=== PATIENT | female | born 1985 | race Asian ===

== ENCOUNTER → 2024-07-24 09:48 | Outpatient (REF) | payer OTHER, SELFPAY | LOC: RAD 09:48 | PROVIDERS: ATTENDING PHYSICIAN Internal Medicine | DX: N30.01 Acute cystitis with hematuria (principal) | CPT/HCPCS: 76770 ==

== ENCOUNTER 2024-12-15 18:48 | Inpatient (IN) | payer OTHER, SELFPAY ==
[2024-12-15 15:00] VITALS: BP 125/82
[2024-12-15] MEDS: MAGNESIUM SULFATE 50 IV (15:24)
[2024-12-15] MEDS: DUONEB 9 ML INH (15:24)
--- NOTE | 2024-12-15 15:31 | ED.GENMED ---
History of Present Illness
General
Chief Complaint: Breathing Problem
Time Seen by Provider: 12/15/24 15:11
History of Present Illness
History of Present Illness:
39-year-old female with history of asthma presenting for persistent asthma exacerbation. Patient reports she has been having asthma symptoms off and on for the past month after traveling out of the country. Notes that she previously had been
getting injections for her asthma every month, however stopped when she went out of the country. As soon as she got back home a month ago, her shortness of breath began. She is been using her inhaler without significant relief. She went to her
doctor prior to arrival, was given an albuterol treatment and 40 mg of prednisone. She denies any history of intubations or admissions. She denies fever. She has been having a cough. She denies additional acute medical complaints
Phy Exam
Physical Exam
Physical Exam:
General: Well-appearing, no clinical signs of dehydration, nontoxic and in no acute distress
HEENT: protecting airway
Neck: appears supple
CV: Tachycardic, regular rhythm, no evidence of cyanosis
Resp: Increased work of breathing with accessory muscle use, diminished air movement bilaterally with expiratory wheezing
Abd: No distention
Extremities: No deformities, no swelling
Neuro: alert, no focal neurologic deficit
: deferred
Rectal: deferred
Psych: Normal affect
Skin: Intact
Course
Orders/Labs/Results
Orders:
Orders
12/15/24
Electrocardiogram (*1) Stat
Comment: DONE EMR
12/15/24 15:14
Ipratropium/Albuterol Sulfate [Duoneb] 9 ml INH R NOW STA
Magnesium Sulfate 2 Gram/50 ml [Magnesium Sulfate] 2 gram in 50 ml IV NOW
CR Chest - 2 Views Urgent
Comment:
Reason For Exam: asthma exacerbation
12/15/24 15:15
Test Result ONCE
12/15/24 15:21
Complete Blood Count/With Diff Urgent
D-Dimer Urgent
12/15/24 15:37
Dexamethasone Sod Phosphate [Decadron] 10 mg IV NOW STA
12/15/24 15:58
COVID-19 Antigen Urgent
Source: Nasal Swab
Influenza A+B Rapid Molecular Urgent
JEANETTE Source: Nasal Swab
Specimen Description:
12/15/24 16:46
Comprehensive Metabolic Panel Urgent
HCG, Serum Qualitative Screen Urgent
Abnormal Lab Results
12/15/24 12/15/24
15:21 16:46
WBC 10.9 H 10^3/uL
(4.8-10.8)
MPV 10.6 H fL
(7.4-10.4)
Absolute Eos (auto) 2.8 H 10^3/uL
(0-0.7)
Lymphocytes % 19.0 L %
(20.5-51.1)
Eosinophils % 25.4 H %
(0-6)
Sodium 134 L mmol/L
(135-145)
Glucose 101 H mg/dl
(70-99)
12/15/24 15:21
12/15/24 16:46
Vital Signs
Initial and Last Documented VS:
Initial Vital Signs
Temp Pulse Resp BP Pulse Ox
98.5 F 137 40 125/82 94
12/15/24 15:00 12/15/24 15:00 12/15/24 15:00 12/15/24 15:00 12/15/24 15:00
Last Documented Vital Signs
Temp Pulse Resp BP Pulse Ox
98.5 F 112 20 115/76 97
12/15/24 15:00 12/15/24 17:00 12/15/24 17:00 12/15/24 17:00 12/15/24 17:00
MDM/Problems Addressed
MDM/Problems Addressed:
39-year-old female with history of asthma presenting for persistent asthma symptoms on and off for the past month. Vital signs on arrival on arrival are significant for tachypnea and tachycardia.
On exam patient is in mild to moderate respiratory distress with increased work of breathing and accessory muscle use. Concern for acute asthma exacerbation. Given tachycardia and persistence of symptoms, particularly after a long flight home,
cannot satisfy PERC rule. Will send D-dimer. Wells obtain chest x-ray imaging to evaluate for pneumonia. Will send viral swabs. Will treat with DuoNebs and magnesium and continue to closely monitor
18:00 -patient has been clinically improving while in the emergency department with improvement of work of breathing. Chest x-ray clear. Viral swabs negative. Dimer negative. Patient still very symptomatic on reassessment however. Feel warrants
admission for acute asthma exacerbation for continued treatments and respiratory monitoring.
*Critical Care Note
Total Time (30-74mins, 75-104mins- exclusive of procedures): Not Applicable
ED Attending Note
-
Portions of this chart may have been created with voice recognition software.� Occasional wrong word or��sound alike� substitutions may have occurred due to the inherent limitations of voice recognition software.
Discharge Plan
Departure
Referrals:
Antonella Santiago MD [Family Provider] -
Interventions
Interventions:
*Risk Screen - Suicide Last Done: 12/15/24 17:40
*General Assessment Last Done: 12/15/24 15:00
*Neglect/Abuse Screening Last Done: 12/15/24 15:00
*ED COVID-19 Vaccine History Last Done: 12/15/24 15:00
ED- Cardiac Assessment Last Done: 12/15/24 15:30
ED- Pulmonary Assessment Last Done: 12/15/24 15:30
Discharge Date and Time
Print Language: IRISH
[2024-12-15 15:46] LABS: Hemoglobin 15.2 g/dL (12.0-16.0); Mean Corp Hgb Conc. 34.5 g/dL (33.0-37.0); Mean Corpuscular Hgb 28.4 pg (27.0-31.0); Mean Corpuscular Volume 82.1 fL (81.0-99.0); Mean Platelet Volume 10.6 fL (7.4-10.4); Platelet Count 351 10^3/uL (130-400); Red Blood Cell Count 5.36 10^6/uL (4.20-5.40); Red Cell Dist. Width 13.1 % (11.5-14.5); White Blood Cell Count 10.9 10^3/uL (4.8-10.8)
[2024-12-15 15:52] LABS: D-Dimer 0.31 ug/mlFEU (0.00-0.50)
[2024-12-15 16:28] LABS: % Basophils 0.5 % (0-2); % Eosinophils 25.4 % (0-6); % Immature Granulocytes 0.2 % (0-0.5); % Neutrophils 49.9 % (42.2-75.2); Absolute Basophils 0.1 10^3/uL (0-0.2); Absolute Eosinophils 2.8 10^3/uL (0-0.7); Absolute Lymphocytes 2.1 10^3/uL (1.2-3.4); Absolute Monocytes 0.6 10^3/uL (0.1-0.6); Absolute Neutrophils 5.5 10^3/uL (1.4-6.5); Nucleated Red Blood Cells % 0 %
[2024-12-15 16:29] LABS: COVID-19 Antigen Negative (Negative)
[2024-12-15] MEDS: DECADRON 10 MG IV (16:41)
[2024-12-15 17:00] VITALS: BP 115/76
[2024-12-15 17:04] LABS: HCG, Serum Qualitative Screen Negative
[2024-12-15 17:07] LABS: ALT (SGPT) 15 U/L (0-35); AST (SGOT) 24 U/L (14-36); Albumin 4.1 g/dl (3.5-5.0); Alkaline Phosphatase 78 U/L (38-126); Blood Urea Nitrogen 9 mg/dl (7-17); Calcium 8.8 mg/dl (8.4-10.2); Carbon Dioxide 23 mmol/L (22-30); Chloride 103 mmol/L (98-107); Glucose 101 mg/dl (70-99); Potassium 3.5 mmol/L (3.5-5.1); Sodium 134 mmol/L (135-145); Total Bilirubin 0.5 mg/dl (0.2-1.3); Total Protein 7.4 g/dl (6.3-8.2); eGFR > 60.00
[2024-12-15 17:28] VITALS: BMI 21.6
[2024-12-15 18:29] VITALS: BP 95/77
--- NOTE | 2024-12-15 18:35 | HPS.HSE ---
Family Physician
-
Family Physician: Antonella Santiago
Chief Complaint
-
Cough and shortness of breath
History of Present Illness
Ms. Sheikh is a 39-year-old female with a medical history of cold induced asthma since moving to the [facility] from [facility] more than a decade ago who presents now with persistent cough and shortness of breath. She reports that she has
previously been on asthma treatment with Nucala but had been weaned off of it recently in the past few months prior to traveling to [facility]. She had traveled to [facility] in October and returned to the [facility] just after 2023 at which
time she began experiencing cough and shortness of breath. At first she got relief from her rescue inhaler which he used every 4-6 hours as needed. However, she was requiring more frequent doses from her rescue inhaler and was experiencing less
relief. She then traveled to [facility] on vacation from approximately December 01 through December 13, during which time her cough and shortness of breath progressively worsened. She was seen by her PCP today and reportedly underwent
pulmonary function testing which patient says resulted as 18% and thus was sent to the emergency department for further management. She received a breathing treatment and a dose of prednisone at her PCPs office. She denies any fevers or chills but
does note that she sometimes vomits and sweats when coughing excessively. She denies smoking, alcohol, or drug use.
In the ED, she has remained normotensive and saturating appropriate on room air although has been tachycardic with a heart rate around 110. Her labs were significant for leukocytosis of 11,000, sodium of 134, negative D-dimer, and respiratory panel
negative for influenza or COVID. Chest x-ray was generally unremarkable with no focal consolidation, but possible indication of a viral illness/small airway disease. She was given a dose of IV dexamethasone, IV magnesium sulfate, and a nebulizer
treatment with improvement in respiratory status. She has been admitted for further evaluation management of asthma exacerbation.
Medical History
Past Medical History
Past Medical History: Reports Asthma
Past Surgical History: Reports Other (Nasal surgery related to her allergic rhinitis 2018)
Social History
Tobacco: Non-smoker
Alcohol: None
Drug: None
Personal:
Living: With Family
Family History
Family History: Not pertinent
Allergies / Home Medications
Allergies reflects when Allergies were last updated in [facility].
Home Medications with original date entered in [facility]
Allergy/Medication List:
No known allergies to medications or foods
Review of Systems
-
History Source: Patient
A 12 point ROS was completed and negative except as noted: Yes
Respiratory: Reports Cough and Trouble Breathing
Physical Exam
Vital Signs
Vital Signs
Temp Pulse Resp BP Pulse Ox
98.5 F 112 20 95/77 96
12/15/24 15:00 12/15/24 18:29 12/15/24 18:29 12/15/24 18:29 12/15/24 18:29
Physical Exam
General: No Apparent Distress
Laboratory Results
-
12/15/24 15:21
12/15/24 16:46
Laboratory Results
Total Bilirubin 0.5 mg/dl (0.2-1.3) 12/15/24 16:46
AST 24 U/L (14-36) 12/15/24 16:46
ALT 15 U/L (0-35) 12/15/24 16:46
Alkaline Phosphatase 78 U/L (38-126) 12/15/24 16:46
Impression/Plan
-
Gen-AAOx3, NAD
HEENT-NC, AT, anicteric, clear oral mm
Neck-supple
CV-reg, no M, +S1/S2
Lungs-clear B/L
Abd-soft, NT, ND
Musculoskeletal-no edema, no deformity
Skin-warm and dry
Neuro-grossly non-focal
Psych-calm, cooperative
Ms. Sheikh is a 39-year-old female with a medical history of cold induced asthma since moving to the [facility] from [facility] more than a decade ago who presents now with persistent cough and shortness of breath. She reports that she has
previously been on asthma treatment with Nucala but had been weaned off of it recently in the past few months prior to traveling to [facility]. She had traveled to [facility] in October and returned to the [facility] just after 2023 at which
time she began experiencing cough and shortness of breath. At first she got relief from her rescue inhaler which he used every 4-6 hours as needed. However, she was requiring more frequent doses from her rescue inhaler and was experiencing less
relief. She then traveled to [facility] on vacation from approximately December 01 through December 13, during which time her cough and shortness of breath progressively worsened. She was seen by her PCP today and reportedly underwent
pulmonary function testing which patient says resulted as 18% and thus was sent to the emergency department for further management.
Asthma with acute exacerbation:
-Suspect this is an allergic reaction to her known trigger of cold air, recently discontinued Nucala
-Continue scheduled Solu-Medrol 40 mg IV every 12 hours
-Symbicort 2 puffs every 12 hours
-DuoNebs as needed
-Consult to pulmonology
-Tessalon Perles for cough suppression as needed
-Respiratory panel negative for influenza and COVID
-Not hypoxic, D-dimer negative
-Suspect mild leukocytosis is due to recent steroid administration and frequent inhaler use in the setting of asthma exacerbation, doubt infection
CODE STATUS: Full code
[2024-12-15] MEDS: SYMBICORT 80/4.5 MCG INHALER 2 PUFF INH (20:00)
[2024-12-15 21:22] VITALS: BP 91/71
[2024-12-15 21:58] VITALS: BMI 19.1
[2024-12-15 22:00] VITALS: BP 101/66
[2024-12-16] MEDS: DUONEB 3 ML INH (05:13)
--- NOTE | 2024-12-16 06:35 | PTCARENOTE ---
Patient arrived from ED. Patient ambulated from stretcher to bed. Patient oriented to room, AAO x3. Fall precautions reviewed with patient. Call mcdonald is within reach, bed in the lowest position.
[2024-12-16 07:53] VITALS: BP 117/68
[2024-12-16] MEDS: SYMBICORT 80/4.5 MCG INHALER 2 PUFF INH (07:56)
[2024-12-16] MEDS: SOLU-MEDROL PF 40 MG IV (08:57)
--- NOTE | 2024-12-16 09:11 | CON.PUL ---
Consultation
Consultation Request
Date/Time Consultation Requested: 12/16/24
Date/Time Consultation Performed: 12/16/24
Performing Provider: Salma
Reason for Consultation: Asthma exacerbation
Medical History
-
History of Present Illness:
Patient is a 39-year-old female with previous history of adult onset asthma, diagnosed in her 20s since living in the [place] presenting with cough, shortness breath and chest tightness. She feels like she was in an asthma exacerbation, came to the
hospital and placed on IV steroids. She was diagnosed as an adult, and was not diagnosed as a child while living in [place]. She had been following with [facility], Dr. Joaquina Schilling and was placed on Xolair for allergic asthma for 5
years. She had elevated IgE levels then, most recent bloodwork in Oct was >300. She was then transitioned to Nucala in 2016, presumably due to high eosinophils. She had been well controlled since then. She decided in April 2024 that she wanted to
try herself off her biologic. She then went to [facility] for detox program that she felt was beneficial. By October she noticed that her symptoms were returning and was steadily increasing in nature. She recently traveled to [place] in the past
couple weeks which she was unable to tolerate without excessive nebulizer use and presented to the ER.
In terms her asthma, she notes that her most recent FEV1 was 18% which prompted evaluation in ER. She had been maintained on Symbicort twice a day for many years. She feels her symptoms are much worse in the winter season but generally it is gone
through the summer and when she is in warmer climates including back in [place]. She has had allergy testing in the past and recalls being positive for mold and dust.
It has been many years since her last allergy testing. She does have history of nasal polyps, which have been evaluated by ENT and removed in the past. She does not recall an allergy or sensitivity to aspirin.
Past Medical History
Past Medical History: Other (see list below)
Social History
Tobacco: Non-smoker
Alcohol: None
Drug: None
Family History
Family History: Reviewed & Not Pertinent
Allergies / Home Medications
Allergies
Allergy/AdvReac Type Severity Reaction Status Date / Time
No Known Allergies Allergy Unverified 10/30/21 21:26
Home Medications
�Medication �Instructions �Recorded �Confirmed �Last Taken �Type
cholecalciferol (vit D3) 1,000 1 tab PO DAILY 12/15/24 12/15/24 Unknown History
unit-vitamin K2 (MK4) 100 mcg
tablet
cyanocobalamin (vitamin B-12) 1,000 mcg PO DAILY 12/15/24 12/15/24 Unknown History
1,000 mcg tablet
levalbuterol tartrate 45 2 inh inhalation R Q6HPRN PRN SOB 12/15/24 12/15/24 Unknown History
mcg/actuation aerosol inhaler
(Xopenex HFA)
Review of Systems
-
History Source: Patient
All other systems: Negative unless noted
Vitals / Labs / Diagnostic Testing
Vital Signs
Temp Pulse Resp BP Pulse Ox
97.5 F 80 16 117/68 95
12/16/24 07:53 12/16/24 08:02 12/16/24 08:02 12/16/24 07:53 12/16/24 08:02
Microbiology
12/15/24 15:58 Nasal Swab Influenza Types A & B (ZAHIDA) - Final
Test repeatedly invalid.
Nucleic Acid Amplification test (NAAT)performed on the
[employer] platform.
Diagnostic Testing:
Physical Exam
-
HEENT: Normocephalic, Anicteric and Moist Mucous Membranes
Cardiovascular: S1/S2 and Regular Rhythm
Respiratory: Wheeze (bilateral) and Non-Labored Respirations
GI: Soft, Non Distended and Non Tender
Neurology: Awake, Alert, Oriented and No Motor Deficits
Skin: Warm, Dry and Good Color
General: Comfortable and Other (NAD)
Assessment
-
Patient is a 39-year-old female with previous history of adult onset asthma, diagnosed in her 20s since living [place] the [place] presenting with cough, shortness breath and chest tightness. She feels like she was in an asthma exacerbation, came to the ""hospital and placed on IV steroids. Recently stopped her Nucala in April 2024. She then went to [facility] for detox program that she felt was beneficial. By October she noticed that her symptoms were returning and was steadily increasing in nature.
She recently traveled to [place] in the past couple weeks which she was unable to tolerate without excessive nebulizer use and presented to the ER. We are consulted for evaluation.
Acute asthma exacerbation
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
Conditions present [facility] [employer]
Moderate persistent asthma
Seasonal allergic rhinitis
Vitamin B12 deficiency
Vitamin D deficiency
Sinus surgery 10/2017
Plan
No significant hypoxemia noted on arrival.
There is no known history of O2 use at home
Asthma history is extensive--
She was diagnosed as an adult, and was not diagnosed as a child while living in [facility]. Maintained on Symbicort twice a day for many years
She had been following with [facility], Dr. Joaquina Schilling and was placed on Xolair for allergic asthma for 5 years.
She had elevated IgE levels then, most recent bloodwork in [facility] was >300. She was then transitioned to Nucala in 2016 and well controlled, stopped in April 2024
FEV1 18% in office, sent to ER
Has comorbid history of allergies, nasal polyps but denies ASA sensitivities
Asthma exacerbation presumed initiated by going off biologic in April
Eosinophils on admission very high 25%/2800 abs--prior to this she had been 13% in Dec
She is placed on IV steroids and feels already improving since admission
Can transition to prednisone 50mg with taper at discharge
CXR obtained indicating NAD, mild hilar prominence
No prior CT
We had a long discussion about possible triggers, environmental factors for asthma, prior allergy testing
Recommend checking for things at home that may be a trigger, we discussed trigger avoidance
Will need to complete prednisone taper and transition back on her biologic
We discussed need for weaning off medications again for repeat allergy testing but the risk/benefit may not outweigh
Will need outpatient pulmonary evaluation in our office including PFTs and 6MWT
Reviewed with patient
She follows with Dr Schilling
May also need to see ENT again for polyps
Other biologics that maybe considered are Dupixent and Fasenra
Discussed this in great detail with patient and
Discharge planning per team
We will arrange FU w/ PFTs
Diagnostic Data
CXR 12/15/24 - Lungs: No focal airspace disease. Mild interstitial and perihilar prominence. No pleural effusion or pneumothorax.
CT
ECHO
PFT
Reports and relevant images were personally reviewed.
-----
Total time spent on this consultation _81__ minutes which includes review of history, physical exam, medications, llaboratory data, personal review of imaging, extensive review of outpatient records, and discussions with care team.
[2024-12-16] MEDS: LIDOCAINE 4% PATCH 2 PATCH TOPICAL (09:23)
--- NOTE | 2024-12-16 14:25 | W.DCSUMMARY ---
Discharge Summary
Discharge Data
Date of Admission: 12/15/24
Date of Discharge: 12/16/24
-
Pending Results: No
Hospital Course
Ms. Sheikh is a 39-year-old female with a medical history of cold induced asthma since moving [facility] from [facility] more than a decade ago who presented with persistent cough and shortness of breath. She reports that she has previously
been on asthma treatment with Nucala but had been weaned off of it in the past few months prior to traveling to [facility]. She had traveled to [facility] in October and returned to the [facility] just after 2023 at which time she began
experiencing cough and shortness of breath. At first she got relief from her rescue inhaler which he used every 4-6 hours as needed. However, she was requiring more frequent doses from her rescue inhaler and was experiencing less relief. She then
traveled to [facility] on vacation from approximately December 01 through December 13, after which her cough and shortness of breath progressively worsened. She was seen by her PCP just prior to presentation in the ED and underwent pulmonary
function testing which patient says resulted as 18%, and thus was sent to the emergency department for further management. She received a breathing treatment and a dose of prednisone at her PCPs office. She denies any fevers or chills but does
note that she sometimes vomits and sweats when coughing excessively. She denies smoking, alcohol, or drug use.
In the ED, she remained normotensive and was saturating appropriate on room air. Her labs were significant for leukocytosis of 11,000, sodium of 134, negative D-dimer, and respiratory panel negative for influenza or COVID. Chest x-ray was
generally unremarkable with no focal consolidation, but possible indication of a viral illness/small airway disease. She was given a dose of IV dexamethasone, IV magnesium sulfate, and a nebulizer treatment with improvement in respiratory status.
She was admitted for further evaluation management of asthma exacerbation. She was continued on IV steroids and nebulizer treatments. She will be discharged to home with an oral steroid taper and a prescription for nebulized albuterol/ipratropium.
She will need to follow-up closely with her asthma specialist for ongoing monitoring and potentially restarting Nucala. She should also follow-up with her primary care physician following hospital discharge.
Gen-AAOx3, NAD
HEENT-NC, AT, anicteric, clear oral mm
Neck-supple
CV-reg, no M, +S1/S2
Lungs-clear B/L
Abd-soft, NT, ND
Musculoskeletal-no edema, no deformity
Skin-warm and dry
Neuro-grossly non-focal
Psych-calm, cooperative
Discharge Plan
-
Patient Disposition: Home (Routine Discharge)
Discharge Diagnosis/Procedures: Asthma exacerbation
Diet: No restrictions
Activity: No restrictions
Activity Restrictions/Additional Instructions:
Ms. Sheikh is a 39-year-old female with a medical history of cold induced asthma since moving to the [facility] from [facility] more than a decade ago who presented with persistent cough and shortness of breath. She reports that she has previously
been on asthma treatment with Nucala but had been weaned off of it in the past few months prior to traveling to [facility]. She had traveled to [facility] in October and returned to the [facility] just after 2023 at which time she began
experiencing cough and shortness of breath. At first she got relief from her rescue inhaler which he used every 4-6 hours as needed. However, she was requiring more frequent doses from her rescue inhaler and was experiencing less relief. She then
traveled to [facility] on vacation from approximately December 01 through December 13, after which her cough and shortness of breath progressively worsened. She was seen by her PCP just prior to presentation in the ED and underwent pulmonary
function testing which patient says resulted as 18%, and thus was sent to the emergency department for further management. She received a breathing treatment and a dose of prednisone at her PCPs office. She denies any fevers or chills but does
note that she sometimes vomits and sweats when coughing excessively. She denies smoking, alcohol, or drug use.
In the ED, she remained normotensive and was saturating appropriate on room air. Her labs were significant for leukocytosis of 11,000, sodium of 134, negative D-dimer, and respiratory panel negative for influenza or COVID. Chest x-ray was
generally unremarkable with no focal consolidation, but possible indication of a viral illness/small airway disease. She was given a dose of IV dexamethasone, IV magnesium sulfate, and a nebulizer treatment with improvement in respiratory status.
She was admitted for further evaluation management of asthma exacerbation. She was continued on IV steroids and nebulizer treatments. She will be discharged to home with an oral steroid taper and a prescription for nebulized albuterol/ipratropium.
She will need to follow-up closely with her asthma specialist for ongoing monitoring and potentially restarting Nucala. She should also follow-up with her primary care physician following hospital discharge.
Referrals:
Allyn Marsh, [Active] - in one to two weeks (PFTs)
Antonella Santiago MD [Family Provider] -
Prescriptions:
New
benzonatate 100 mg Capsule
100 mg PO TIDPRN PRN (Reason: cough) Qty: 20 0RF
methylprednisolone [Medrol (Luigi)] 4 mg tablets,dose pack
See Rx Instructions .ROUTE .COMPLEX Qty: 21 0RF
Rx Instructions:
for 6 days
ipratropium-albuterol 0.5 mg-3 mg(2.5 mg base)/3 mL solution for nebulization
3 ml inhalation QID PRN (Reason: shortness of breath or wheezing) Qty: 90 0RF
Continued
levalbuterol tartrate [Xopenex HFA] 45 mcg/actuation Hfa Aerosol Inhaler
2 inh INHALATION R Q6HPRN PRN (Reason: SOB)
Patient Comments:
12/15/24 prescribed for 1 puff but does 2 puff per time
vitamin D3-vitamin K2 (MK4) 1,000-100 unit-mcg Tablet
1 tab PO DAILY
cyanocobalamin (vitamin B-12) 1,000 mcg Tablet
1,000 mcg PO DAILY
Discharge Orders:
Discharge Patient (As Directed); Ordered 12/16/24
Ordered By: Jose Singh
Discharge Date and Time
Print Language: BENGALI
[2024-12-16] MEDS: DELTASONE 50 MG PO (14:28)
--- NOTE | 2024-12-16 14:57 | CM ---
Alert awake oriented patient who lives with her Julio C in a 2 story home with 4 steps to enter and 15 steps to bed/bathroom. She is independent in activates of daily living.She does drive .Offered VN she declined need. Pt ordered
Nebulizer. Spoke with Cristopher lees who carries Nebulizer no script needed for $50.00. Pt informed of Nebulizer location.
No VN in past . No SNF hx
Pharmacy [facility]
PCP Dr Santiago
PLAN Home with no needs . Pt to pickle solution maker Nebulizer at [facility]
[2024-12-16 15:28] VITALS: BP 98/62
== END 2024-12-16 15:12 | disposition home or self-care (01) | DRG 203 ==
LOC: 3 WEST ACU 18:48
PROVIDERS: ADMITTING PHYSICIAN Internal Medicine; EMERGENCY PHYSICIAN Student in an Organized Health Care Education/Training Program; FAMILY PHYSICIAN Internal Medicine; OTHER PHYSICIAN Internal Medicine
DX: J45.41 Moderate persistent asthma with (acute) exacerbation (principal); D72.10 Eosinophilia, unspecified; E53.8 Deficiency of other specified B group vitamins; Z11.52 Encounter for screening for COVID-19; Z79.51 Long term (current) use of inhaled steroids
CPT/HCPCS: 71046; 80053; 84703; 85025; 85379; 87502; 87811; 93005; 94640; 96374; 96375; 99285

== ENCOUNTER → 2025-01-27 09:22 | Outpatient (REF) | payer OTHER, SELFPAY | LOC: WDC 09:22 | PROVIDERS: ATTENDING PHYSICIAN Family Medicine | DX: N63.12 Unspecified lump in the right breast, upper inner quadrant (principal) | CPT/HCPCS: 76642; 77062; 77066 ==